=== PATIENT | female | born 2005 | race Caucasian/White ===

== ENCOUNTER 2025-05-15 09:01 | Emergency (ER) | payer BC ==
[~2025-05-15] VITALS: Ht 175.3 cm; Wt 122.7 kg
[2025-05-15 09:05] VITALS: TEMP 99
[2025-05-15 09:27] LABS: COVID AG,FIA SOURCE NASAL SWAB
[2025-05-15 09:58] LABS: SARS-COV2 (COVID) ANTIGEN,FIA Negative (Negative)
[2025-05-15 09:59] LABS: INFLUENZA TYPE A NEGATIVE FOR TYPE A (NEGATIVE); INFLUENZA TYPE B NEGATIVE FOR TYPE B (NEGATIVE)
[2025-05-15] MEDS: BENZONATATE 100 MG CAPSULE PO ONE (13:01)
[2025-05-15] MEDS: ACETAMINOPHEN 500 MG TABLET PO ONE (13:02)
[2025-05-15 14:26] VITALS: BP 128/85; PULSE 98; RESP 17; O2SAT 98
[2025-05-15] MEDS ORDERED: ACET-2247 PO (14:53)
[2025-05-15] MEDS ORDERED: AMOX500C2 PO (14:53)
[2025-05-15] MEDS: AMOXICILLIN TRIHYDRATE 250 MG CAPSULE PO ONE (16:01)
== END 2025-05-15 16:23 | disposition home or self-care (01) ==
LOC: EMS 09:06
DX: J02.0 Streptococcal pharyngitis (principal); R50.9 Fever, unspecified; R05.9 Cough, unspecified; Z90.89 Acquired absence of other organs; Z20.822 Contact with and (suspected) exposure to COVID-19
CPT/HCPCS: 87081; 87430; 87804; 99284; Z7502; Z7610